=== PATIENT | female | born 1950 | race African-American/Black ===

== ENCOUNTER 2018-11-30 10:01 | Emergency (ER) | payer MEDICAID, MEDICARE ==
[~2018-11-30] VITALS: Ht 157.5 cm; Wt 75.0 kg
[2018-11-30 10:03] VITALS: BP 166/58
== END 2018-11-30 11:10 | disposition left against medical advice (07) ==
LOC: ER 10:01
DX: Z76.0 Encounter for issue of repeat prescription (principal); G62.9 Polyneuropathy, unspecified; E11.9 Type 2 diabetes mellitus without complications; E78.00 Pure hypercholesterolemia, unspecified; I10 Essential (primary) hypertension
CPT/HCPCS: 99283